=== PATIENT | male | born 1955 | race Caucasian/White ===

== ENCOUNTER 2017-04-19 20:45 | Emergency (ER) | payer MEDICAID, OTHER ==
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
== END 2017-04-19 22:10 | disposition home or self-care (01) ==
LOC: ER 20:45
DX: K05.5 Other periodontal diseases (principal)
CPT/HCPCS: Z7502; Z7610

== ENCOUNTER 2017-08-12 19:27 | Emergency (ER) | payer OTHER ==
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
== END 2017-08-12 20:20 | disposition home or self-care (01) ==
LOC: ER 19:27
DX: L29.9 Pruritus, unspecified (principal); K13.79 Other lesions of oral mucosa; M79.672 Pain in left foot; M79.643 Pain in unspecified hand
CPT/HCPCS: Z7502

== ENCOUNTER 2017-10-20 20:51 | Emergency (ER) | payer OTHER ==
--- NOTE | 2017-10-20 21:28 | ED Physician Chart ---
ED Chief Complaint/HPI - Patient Information Date Seen:: 10/20/17 Time Seen:: 21:11 Chief Complaint:: HEAD TRUMA History of Present Illness:: THIS IS A 62 YO MALE WHO IS HERE WITH CONCERN ABOUT AN INJURY TO HIS HEAD HE SUSTAINED EARLIER TODAY. HE DENIES LOC AND NAUSEA OR VOMITING. HE STATES THAT HE HAD AN ENCOUNTER WITH THE [facility] AND THAT IS HOW HE SUSTAINED AND INJURY TO HIS HEAD. HE NOW HAS PAIN 10/30. HE WAS SEEN AT ANOTHER HOSPITAL EARLIER TODAY. Allergies:: Allergies Allergy/AdvReac Type Severity Reaction Status Date / Time No Known Allergies Allergy Verified 08/12/17 19:43 Vitals:: Vital Signs - 8 hr 10/20/17 21:00 Temp 98.2 F HR 92 RR 18 BP 139/82 O2 Sat % 98 Historian:: Patient Review:: Nurse's Note Reviewed ED Review of Systems - Review of Systems General/Constitutional: No fever, No chills, No weight loss, No weakness, No diaphoresis, No edema, No loss of appetite, Other (HEADACHE) Skin: No skin lesions, No rash, No bruising Head: No headache, No light-headedness Eyes: No loss of vision, No pain, No diplopia ENT: No earache, No nasal drainage, No sore throat, No tinnitus Neck: No neck pain, No swelling, No thyromegaly, No stiffness, No mass noted Cardio Vascular: No chest pain, No palpitations, No PND, No orthopnea, No edema Pulmonary: No SOB, No cough, No sputum, No wheezing GI: No nausea, No vomiting, No diarrhea, No pain, No melena, No hematochezia, No constipation, No hematemesis G/U: No dysuria, No frequency, No hematuria Musculoskeletal: No bone or joint pain, No back pain, No muscle pain Endocrine: No polyuria, No polydipsia Psychiatric: No prior psych history, No depression, No anxiety, No suicidal ideation Hematopoietic: No bruising, No lymphadenopathy Allergic/Immuno: No urticaria, No angioedema Neurological: No syncope, No focal symptoms, No weakness, No paresthesia, No headache, No seizure, No dizziness, No confusion, No vertigo ED Past Medical History - Past Medical History Obtainable: Yes Family History: None Social History: Smoker, Alcohol, No Drug Use, Homeless Surgical History: None Psychiatricy History: None Family Medical History - Family Member Mother History Unknown: Yes Hx Family Hypertension: Yes ED Physical Exam - Physical Examination General/Constitutional: Awake, Well-developed, well-nourished, Alert, No distress, GCS 15, Non-toxic appearing, Ambulatory Head: Atraumatic (THERE IS A STAR SHAPED 2 MM SUPERFICIAL LACERATION OF THE RIGHT EYEBROW AREA.) Eyes: Lids, conjuctiva normal, PERRL, EOMI Skin: Nl inspection, No rash, No skin lesions, No ecchymosis, Well hydrated, No lymphadenopathy ENMT: External ears, nose nl, Nasal exam nl, Lips, teeth, gums nl Neck: Nontender, Full ROM w/o pain, No JVD, No nuchal rigidity, No bruit, No mass, No stridor Respiratory: Nl effort/Exclusion, Clear to Auscultation, No Wheeze/Rhonchi/Rales Cardio Vascular: RRR, No murmur, gallop, rubs, NL S1 S2 GI: No tenderness/rebounding/guarding, No organomegaly, No hernia, Normal BS's, Nondistended, No mass/bruits, No McBurney tenderness : No CVA tenderness Extremities: No tenderness or effusion, Full ROM, normal strength in all extremities, No edema, Normal digits & nails Neuro/Psych: Alert/oriented, DTR's symmetric, Normal sensory exam, Normal motor strength, Judgement/insight normal, Mood normal, Normal gait, No focal deficits Misc: Normal back, No paraspinal tenderness ED Assessment - Assessment General Assessment: CONTUSION AND LACERATION OF THE RIGHT EYEBROW AREA Location:: RIGHT EYEBROW AREA Laceration Type:: Simple Wound Length: 0.2 cm Prep/Irrigation:: H2O2 Inspection: No dirt/debris Local Anesthetic:: NONE ED Septic Shock - . Is Septic Shock (SBP<90, OR Lactate>4 mmol\L) present?: No - <6hrs of presentation: Vital Signs: Vital Signs - 8 hr 10/20/17 21:00 Temp 98.2 F HR 92 RR 18 BP 139/82 O2 Sat % 98 ED Reassessment (Disposition) - Reassessment Reassessment Condition:: Improved - Diagnosis Diagnosis:: laceration of the forehead - Aftercare/Follow up Instructions Aftercare/Follow-Up Instructions:: Counseled pt regarding lab results/diagnosis & need follow up, Refer to Discharge Instructions, Counseled pt & family regarding lab results/diagnosis & need follow up - Patient Disposition Discharge/Transfer:: Home Condition at Disposition:: Improved ED Discharge Plan - Patient Disposition Admit/Discharge/Transfer: PT DISCHARGED HOME Condition at Disposition: Improved Instructions: Laceration Care, Adult, [id number] Additional Instructions: follow up with primary doctor in am
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
== END 2017-10-20 22:00 | disposition home or self-care (01) ==
LOC: ER 20:51
DX: S01.81XA Laceration without foreign body of other part of head, initial encounter (principal); F17.200 Nicotine dependence, unspecified, uncomplicated; X58.XXXA Exposure to other specified factors, initial encounter; Y93.9 Activity, unspecified; Y92.89 Other specified places as the place of occurrence of the external cause; Y99.8 Other external cause status
CPT/HCPCS: 70250-TC; Z7502

== ENCOUNTER 2018-12-01 15:25 | Emergency (ER) | payer MEDICAID, OTHER ==
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
== END 2018-12-01 16:11 | disposition home or self-care (01) ==
LOC: ER 15:25
DX: M79.671 Pain in right foot (principal)
CPT/HCPCS: Z7502